=== PATIENT | male | born 1955 | race Caucasian/White ===

== ENCOUNTER 2017-04-15 12:28 | Inpatient (IN) ==
[2017-04-15] MEDS: *HR* OxyCODONE Immed Rel 5 MG TABLET PO PRN ×2 (15:05→20:50)
[2017-04-16] MEDS: *HR* OxyCODONE Immed Rel 5 MG TABLET PO PRN ×4 (05:17→19:25)
[2017-04-16 06:19] LABS: Basophils % 0.7 %; Eosinophils # 0.3 K/mcL (0.0-0.6); Eosinophils % 4.3 %; Hematocrit 32.6 % (37.5-50.1); Hemoglobin 11.2 g/dL (12.9-16.9); Immature Granulocytes % 0.5 % (0-4); Lymphocytes % 17.3 %; Mean Corpuscular HGB Conc 34.4 g/dL (31.6-35.5); Mean Corpuscular Hemoglobin 29.8 pg (28.0-33.3); Mean Corpuscular Volume 86.7 fL (83.0-100.0); Mean Platelet Volume 8.9 fL (9.4-12.4); Monocytes # 0.6 K/mcL (0.0-1.3); Monocytes % 10.2 %; Neutrophils # 3.9 K/mcL (1.6-8.9); Platelet Count 160 K/mcL (140-400); Red Blood Count 3.76 M/mcL (4.19-5.50); Red Cell Distribution Width 12.9 % (11.5-14.5)
[2017-04-16 06:26] LABS: Activated Partial Thrombo Time 25.4 Seconds (26.0-36.0)
[2017-04-16 06:36] LABS: BUN/Creatinine Ratio 16 (6-26); Blood Urea Nitrogen 10 mg/dL (8-23); Calcium 8.4 mg/dL (8.6-10.3); Carbon Dioxide 31 mEq/L (23-29); Chloride 102 mEq/L (98-107); Glucose 117 mg/dL (70-105); Osmolality,Calculated 284 (280-300); Potassium 4.2 mEq/L (3.5-5.1); Sodium 137 mEq/L (136-145); eGFR For African Americans > 60 (> 60); eGFR For Non-African Americans > 60 (> 60)
[2017-04-16 06:56] LABS: INR 1.1; Prothrombin Time 11.9 Seconds (9.4-12.1)
[2017-04-16] MEDS: Aspirin Enteric Coated 325 MG Tablet PO SCH (08:23)
[2017-04-16] MEDS: Multivit/Ca/Min/Fe/FA 1 TAB TABLET PO SCH (08:23)
[2017-04-16] MEDS: Ascorbic Acid 500 MG TABLET PO SCH (08:23)
[2017-04-16] MEDS: Cholecalciferol (D-3) 1,000 UNIT TABLET PO SCH (08:23)
--- NOTE | 2017-04-16 12:10 | Internal Med History&Physical ---
Date of Encounter: 04/16/17 Time of Encounter: 11:45 Assessment and Plan (1) Osteoarthritis of left hip Current visit: No Status: Chronic He will have physical therapy and occupational therapy evaluations with ongoing intervention. Aspirin has been ordered for DVT prophylaxis. Qualifiers: Osteoarthritis type: unspecified Qualified Code(s): M16.12 - Unilateral primary osteoarthritis, left hip (2) Hyperlipidemia Current visit: Yes Status: Acute We will recheck labs in a.m. Qualifiers: Hyperlipidemia type: mixed hyperlipidemia Qualified Code(s): E78.2 - Mixed hyperlipidemia (3) Anemia Current visit: Yes Status: Acute Suspect combination of surgery with aspirin use. We will monitor CBC. Qualifiers: Anemia type: unspecified type Qualified Code(s): D64.9 - Anemia, unspecified Internal Medicine - H&P: HPI Chief complaint: Left THR Admitted From: Hospital to Hospital Transfer Plans for Post Hospital Care: Home History of present illness: Mr. Barba is a 61 year old male who was hospitalized at [facility] April 11- for elective total left hip replacement. His postoperative course was unremarkable and he was admitted to [facility] swing bed for ongoing therapy needs. His orthopedic history is significant for previous left shoulder rotator cuff repair. 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 He has limited range of motion of the right shoulder. He denies gout , significant DJD or other bone joint or muscle disorders. Past Med Surg Social Fam HX - Past Medical History Medical history: GERD Psychiatric history: depression - Social History Smoking Status: Never smoker Smokeless Tobacco Status: No Alcohol use: none Drug use: none - Family History Father Living Status: Hx Family Cancer: Yes Brother History Unknown: Yes Living Status: Hx Family Cancer: Yes Internal Medicine - H&P: Meds Aspirin Enteric Coated [Aspirin EC] 325 mg PO DAILY 21 Days #21 tablet. [Rx] OxyCODONE Immed Rel [Roxicodone 5 MG] 5 mg PO Q6HR PRN 7 Days #28 tablet [Rx] Ascorbate Calcium [Vitamin C] 500 mg PO DAILY 04/12/17 [History] Ergocalciferol (VITAMIN D2) [Vitamin D] 400 unit PO DAILY 04/12/17 [History] Meloxicam [Mobic] 15 mg PO DAILY 04/12/17 [History] Montelukast [Singulair] 10 mg PO HS 04/12/17 [History] Multivitamin [One Daily Essential] 1 tab PO DAILY 04/12/17 [History] Omeprazole [PriLOSEC] 40 mg PO DAILY 04/12/17 [History] Sertraline [Zoloft] 100 mg PO BID 04/12/17 [History] 3 Allergy/AdvReac Type Severity Reaction Status Date / Time lisinopril AdvReac Cough Verified 04/12/17 07:58 All Systems PM: A 10-system review of systems was performed and is negative for pertinent findings except as documented above in the HPI. Review of systems: Gen.: His weight has been stable the past few months Cardiovascular: He denies CA hypertension heart failure angina DVT or pulmonary embolus Respiratory: He is a lifelong nonsmoker and denies chronic lung disease GI: He has GERD. He denies disorders of his liver gallbladder or exocrine pancreas otherwise : He denies hematuria dysuria or kidney stones Neurologic: He denies large distribution strokes or seizures. Endocrine: He denies diabetes thyroid disease or hyperlipidemia Hematology/oncology: Denies blood disorders cancers or anemia Psychiatric: Has depression but denies anxiety or other mental health issues [place] skeletal: As per history of present illness - Constitutional Vitals: Temp Pulse Resp BP Pulse Ox 98.2 F 85 16 122/76 98 04/16/17 06:57 04/16/17 06:57 04/16/17 06:57 04/16/17 06:57 04/16/17 06:57 Exam: Gen.: He is well-developed well-nourished male lying in bed and appears in no acute distress HEENT: Head is atraumatic. There is slight asymmetry with less tone in the right face and flattening of the nasolabial fold. Mouth: Mucosa is moist Neck: Supple and nontender. There is no thyromegaly or adenopathy noted. Heart: Regular without murmurs gallops or ectopics Lungs: No wheezes or crackles are heard. Abdomen: Soft and nontender. No masses or guarding are noted. Extremities: There is no cyanosis edema or clubbing noted. There is a surgical bandage over the left lateral hip. Dorsalis pedis and posttibial pulses are 1- 2 over 2 bilaterally. Neurologic: Mental status: He is talkative and a good historian. Cranial nerves : Smile is symmetric. There is baseline slight flattening of the right nasal labial fold. Forehead wrinkles bilaterally. Tongue protrudes midline. EOMI. Motor: There is no pronator drift. He cannot pronate the right arm well because of congenital shoulder injury. Cerebellar: Finger to nose is intact with the left hand. He cannot use the right arm well. No further neurologic testing is attempted. Skin: Warm and dry. Internal Med - H&P Results - Labs CBC & Chem 7: 04/16/17 06:12 04/16/17 06:12 Labs: Short CBC 04/16/17 Range/Units 06:12 WBC 5.8 (4.3-11.1) K/mcL Hgb 11.2 L (12.9-16.9) g/dL Hct 32.6 L (37.5-50.1) % Plt Count 160 (140-400) K/mcL Neutrophils # 3.9 (1.6-8.9) K/mcL BMP 04/16/17 06:12 Sodium 137 Potassium 4.2 Chloride 102 Carbon Dioxide 31 H BUN 10 Creatinine 0.63 L Glucose 117 H Calcium 8.4 L
[2017-04-16] MEDS ORDERED: MOM Conc 10 ML UD.LIQ PO PRN (13:17)
[2017-04-16] MEDS: traZODone 50 MG TABLET PO PRN (22:51)
[2017-04-17] MEDS: *HR* OxyCODONE Immed Rel 5 MG TABLET PO PRN ×5 (02:20→20:28)
[2017-04-17 06:21] LABS: Basophils % 0.4 %; Eosinophils # 0.3 K/mcL (0.0-0.6); Eosinophils % 5.6 %; Hematocrit 31.9 % (37.5-50.1); Hemoglobin 10.8 g/dL (12.9-16.9); Immature Granulocytes % 0.6 % (0-4); Lymphocytes # 0.8 K/mcL (0.6-4.6); Lymphocytes % 17.3 %; Mean Corpuscular HGB Conc 33.9 g/dL (31.6-35.5); Mean Corpuscular Hemoglobin 29.6 pg (28.0-33.3); Mean Corpuscular Volume 87.4 fL (83.0-100.0); Monocytes # 0.5 K/mcL (0.0-1.3); Monocytes % 11.5 %; Nucleated Red Blood Cells 0.4 /100 WBC (0); Platelet Count 171 K/mcL (140-400); Red Blood Count 3.65 M/mcL (4.19-5.50); Red Cell Distribution Width 13.1 % (11.5-14.5); Segmented Neutrophils % 64.6 %
[2017-04-17 06:39] LABS: Alanine Aminotransferase 57 Units/L (7-52); Albumin 3.3 g/dL (3.5-5.7); Albumin/Globulin Ratio 1.2 (1.1-2.2); Alkaline Phosphatase 61 Units/L (34-104); Aspartate Amino Transferase 59 Units/L (13-39); BUN/Creatinine Ratio 19 (6-26); Bilirubin,Total 0.6 mg/dL (0.3-1.0); Blood Urea Nitrogen 12 mg/dL (8-23); Calcium 8.3 mg/dL (8.6-10.3); Carbon Dioxide 30 mEq/L (23-29); Chloride 103 mEq/L (98-107); Chol/HDL Ratio 5.5 (0-4.9); Cholesterol 209 mg/dL (< 200); Globulin 2.7 g/dL (2.4-3.5); Glucose 112 mg/dL (70-105); HDL Cholesterol 38 mg/dL (40-59); LDL Cholesterol,Calculated 143 mg/dL (0-99); Osmolality,Calculated 289 (280-300); Potassium 3.8 mEq/L (3.5-5.1); Sodium 139 mEq/L (136-145); Triglycerides 140 mg/dL (< 150); eGFR For African Americans > 60 (> 60); eGFR For Non-African Americans > 60 (> 60)
[2017-04-17 06:56] LABS: Thyroid Stimulating Hormone 1.932 mcIU/mL (0.340-5.600)
[2017-04-17] MEDS: Multivit/Ca/Min/Fe/FA 1 TAB TABLET PO SCH (07:51)
[2017-04-17] MEDS: Ascorbic Acid 500 MG TABLET PO SCH (07:51)
[2017-04-17] MEDS: Cholecalciferol (D-3) 1,000 UNIT TABLET PO SCH (07:51)
[2017-04-17] MEDS: Aspirin Enteric Coated 325 MG Tablet PO SCH (07:51)
[2017-04-17] MEDS ORDERED: *HR* OxyCODONE Immed Rel 5 MG TABLET PO PRN (09:37)
[2017-04-17] MEDS: traZODone 50 MG TABLET PO PRN (21:55)
[2017-04-18] MEDS: *HR* OxyCODONE Immed Rel 5 MG TABLET PO PRN ×5 (05:56→23:00)
[2017-04-18] MEDS: Aspirin Enteric Coated 325 MG Tablet PO SCH (09:01)
[2017-04-18] MEDS: Multivit/Ca/Min/Fe/FA 1 TAB TABLET PO SCH (09:01)
[2017-04-18] MEDS: Cholecalciferol (D-3) 1,000 UNIT TABLET PO SCH (09:01)
[2017-04-18] MEDS: Ascorbic Acid 500 MG TABLET PO SCH (09:01)
--- NOTE | 2017-04-18 11:08 | Internal Med Progress Note ---
Date of Encounter: 04/18/17 Time of Encounter: 11:00 - Assessment and plan (1) Osteoarthritis of left hip Current Visit: No Status: Chronic Assessment and plan: April 18. Continue therapy interventions and aspirin. Qualifiers: Osteoarthritis type: unspecified Qualified Code(s): M16.12 - Unilateral primary osteoarthritis, left hip (2) Hyperlipidemia Current Visit: Yes Status: Acute Assessment and plan: April 18. Lipid profile yesterday showed total cholesterol 209, triglycerides 140, LDL 143, HDL 38, and total/HDL ratio 5.5. Qualifiers: Hyperlipidemia type: mixed hyperlipidemia Qualified Code(s): E78.2 - Mixed hyperlipidemia (3) Anemia Current Visit: Yes Status: Acute Assessment and plan: April 18. Continue to monitor CBC. Qualifiers: Anemia type: unspecified type Qualified Code(s): D64.9 - Anemia, unspecified - Subjective Interval history: April 18. He has no new complaints. He reports ongoing significant pain in his left hip. - Constitutional Vitals: Temp Pulse Resp BP Pulse Ox 97.9 F 84 16 111/74 92 04/18/17 06:47 04/18/17 06:47 04/18/17 06:47 04/18/17 06:47 04/18/17 06:47 Exam: He is resting comfortably in bed and appears in no acute distress. Extremities show no edema. He has a wedge pillow in place. His affect is bright and cheerful. I reviewed his medications and lab results. Internal Medicine: Result - Labs CBC & Chem 7: 04/17/17 06:04 04/17/17 06:04 - ABG Interpretation ABG results: PT/INR, D-dimer PT 11.9 Seconds (9.4-12.1) 04/16/17 06:12 Consult Discharge Plan - Plan Referrals: Louie Ghotra DO [Primary Care Provider] - 1 week
[2017-04-18] MEDS: traZODone 50 MG TABLET PO PRN (23:00)
[2017-04-19] MEDS: *HR* OxyCODONE Immed Rel 5 MG TABLET PO PRN ×5 (06:09→22:59)
[2017-04-19] MEDS: Multivit/Ca/Min/Fe/FA 1 TAB TABLET PO SCH (10:05)
[2017-04-19] MEDS: Ascorbic Acid 500 MG TABLET PO SCH (10:05)
[2017-04-19] MEDS: Aspirin Enteric Coated 325 MG Tablet PO SCH (10:05)
[2017-04-19] MEDS: Cholecalciferol (D-3) 1,000 UNIT TABLET PO SCH (10:05)
[2017-04-19] MEDS: traZODone 50 MG TABLET PO PRN (22:59)
[2017-04-20] MEDS: *HR* OxyCODONE Immed Rel 5 MG TABLET PO PRN ×5 (05:20→23:35)
[2017-04-20] MEDS: Multivit/Ca/Min/Fe/FA 1 TAB TABLET PO SCH (08:25)
[2017-04-20] MEDS: Aspirin Enteric Coated 325 MG Tablet PO SCH (08:25)
[2017-04-20] MEDS: Ascorbic Acid 500 MG TABLET PO SCH (08:25)
[2017-04-20] MEDS: Cholecalciferol (D-3) 1,000 UNIT TABLET PO SCH (08:25)
--- NOTE | 2017-04-20 12:46 | Internal Med Progress Note ---
Date of Encounter: 04/20/17 Time of Encounter: 12:40 - Assessment and plan (1) Osteoarthritis of left hip Current Visit: No Status: Chronic Assessment and plan: April 20. Continue therapy interventions and aspirin. Anticipate discharge home April 22. Qualifiers: Osteoarthritis type: unspecified Qualified Code(s): M16.12 - Unilateral primary osteoarthritis, left hip (2) Hyperlipidemia Current Visit: Yes Status: Acute Assessment and plan: April 20. Observe Qualifiers: Hyperlipidemia type: mixed hyperlipidemia Qualified Code(s): E78.2 - Mixed hyperlipidemia (3) Anemia Current Visit: Yes Status: Acute Assessment and plan: April 20. Continue to monitor CBC. Qualifiers: Anemia type: unspecified type Qualified Code(s): D64.9 - Anemia, unspecified - Subjective Interval history: April 18. He has no new complaints. He reports ongoing significant pain in his left hip. April 20. He has no new complaints. - Constitutional Vitals: Temp Pulse Resp BP Pulse Ox 98.0 F 80 18 119/76 97 04/20/17 07:33 04/20/17 07:33 04/20/17 07:33 04/20/17 07:33 04/20/17 07:33 Exam: He is resting comfortably in bed and appears in no acute distress. His affect is bright and cheerful. I reviewed his medications and lab results. Internal Medicine: Result - Labs CBC & Chem 7: 04/17/17 06:04 04/17/17 06:04 - ABG Interpretation ABG results: PT/INR, D-dimer PT 11.9 Seconds (9.4-12.1) 04/16/17 06:12 Consult Discharge Plan - Plan Referrals: Louie Ghotra DO [Primary Care Provider] - 1 week
[2017-04-20] MEDS: traZODone 50 MG TABLET PO PRN (23:35)
[2017-04-21] MEDS: *HR* OxyCODONE Immed Rel 5 MG TABLET PO PRN ×2 (05:46→09:49)
[2017-04-21 07:45] VITALS: BP 121/73
[2017-04-21] MEDS: Aspirin Enteric Coated 325 MG Tablet PO SCH (09:47)
[2017-04-21] MEDS: Multivit/Ca/Min/Fe/FA 1 TAB TABLET PO SCH (09:47)
[2017-04-21] MEDS: Ascorbic Acid 500 MG TABLET PO SCH (09:47)
[2017-04-21] MEDS: Cholecalciferol (D-3) 1,000 UNIT TABLET PO SCH (09:47)
--- NOTE | 2017-04-21 13:57 | Discharge Summary ---
Date of Encounter: 04/21/17 Time of Encounter: 13:50 - Discharge Diagnosis (1) Osteoarthritis of left hip Priority: Primary Status: Chronic Qualifiers: Osteoarthritis type: unspecified Qualified Code(s): M16.12 - Unilateral primary osteoarthritis, left hip (2) Hyperlipidemia Priority: Secondary Status: Chronic Qualifiers: Hyperlipidemia type: mixed hyperlipidemia Qualified Code(s): E78.2 - Mixed hyperlipidemia (3) Anemia Priority: Secondary Status: Acute Qualifiers: Anemia type: unspecified type Qualified Code(s): D64.9 - Anemia, unspecified Hospital course: Mr. Barba is a 61 year old male who was hospitalized at [facility] April 11- for elective total left hip replacement. His postoperative course was unremarkable and he was admitted to [facility] swing bed for ongoing therapy needs. Initial orders were written by the discharging physicians at [facility]. I saw him on April 16 and performed the swing bed history and physical. He had physical therapy and occupational therapy evaluations with ongoing intervention. He made satisfactory progress. On April 21 he felt stable for discharge home. He will follow with his PCP within 1 week and follow with his orthopedist tomorrow. - Time Spent with Patient Total time spent providing and/or coordinating discharge services: - Discharge Medications Home Medications: Aspirin Enteric Coated [Aspirin EC] 325 mg PO DAILY 21 Days #21 tablet. [Rx] OxyCODONE Immed Rel [Roxicodone 5 MG] 5 mg PO Q6HR PRN 7 Days #28 tablet [Rx] Ascorbate Calcium [Vitamin C] 500 mg PO DAILY 04/12/17 [History] Ergocalciferol (VITAMIN D2) [Vitamin D] 400 unit PO DAILY 04/12/17 [History] Montelukast [Singulair] 10 mg PO HS 04/12/17 [History] Multivitamin [One Daily Essential] 1 tab PO DAILY 04/12/17 [History] Omeprazole [PriLOSEC] 40 mg PO DAILY 04/12/17 [History] Sertraline [Zoloft] 100 mg PO BID 04/12/17 [History] Allergies/Adverse Reactions: 3 Allergy/AdvReac Type Severity Reaction Status Date / Time lisinopril AdvReac Cough Verified 04/12/17 07:58 Date of admission: 04/15/17 13:16 Primary care physician: Louie Ghotra, Consults: 04/15/17 14:17 Consult to Occupational Therapy [CONS] Routine Comment: Eval, Develop, and Implement P.O.C. Reason for Consult: Eval, Develop, and Implement P.O.C. - L THR Consult to Physical Therapy [CONS] Routine Comment: Eval, Develop, and Implement P.O.C. Reason for Consult: Eval, Develop, and Implement P.O.C. - L THR Consult to [employer] [CONS] Routine Reason for SW Consult: D/C planning - Constitutional Vitals: Temp Pulse Resp BP Pulse Ox 97.9 F 78 16 121/73 93 04/21/17 07:41 04/21/17 07:41 04/21/17 07:41 04/21/17 07:41 04/21/17 07:41 - Patient Status Disposition: Home, Self-Care Functional capacity at discharge: uses cane/walker Overall status at discharge: patient is progressing back to baseline - Discharge Instructions Follow Up With: Louie Ghotra DO [Primary Care Provider] - 1 week - Diet and Activity Activity: as per physical therapy Diet: advance to your usual diet
== END 2017-04-21 14:30 | disposition home or self-care (01) | DRG 561 ==
LOC: INPPIK 13:16
PROVIDERS: ADMIT Internal Medicine; ATTEND Internal Medicine